=== PATIENT | female | born 1950 | race Caucasian/White ===

== ENCOUNTER 2019-11-23 16:01 | Emergency (ER) | payer MEDICARE, MEDICAID ==
[~2019-11-23] VITALS: Ht 154.9 cm; Wt 91.5 kg
[2019-11-23 16:01] VITALS: BP 120/76
[~2019-11-23 16:01] MED LIST: ACET325T9 PO; ATOR10TA60 PO; BENZ0.5T32 PO; BENZ2AMP4 PO; CYAN10002 IJ; DIVA500T17 PO; FAMO-63 PO; FURO-69 PO; GABA-585 PO; LEVO50TA5 PO; MAG355OR12 PO; MAGN24003 PO; MELO7.5T5 PO; METH29OI TP; METO25TA2 PO; METO50TA4 PO; NICO2GUM42 BC; OLAN20TA5 PO; OMEP20TA8 PO; OXCA600T3 PO; QUET25TA5 PO; QUET50TA5 PO; SUVO15TA PO; TRAZ-120 PO
--- NOTE | 2019-11-23 16:40 | PHYS DOC ---
Past History Past Medical History: Asthma, Bipolar, Depression, UTI Past Surgical History: No Surgical History Alcohol Use: None General Adult EDM: Chief Complaint: OTHER COMPLAINTS HPI: HPI: 69-year-old female presents with altered mental status. The patient has been having some low back pain and started a new muscle relaxer a week ago. Since that time, she states that she has felt a little "loopy". Her daughter also told my nurse that she has seemed a little more altered each day this week. She looked at her mother's pill organizer and it seemed to be in disarray today. The patient's daughter is concerned about this. The patient knows that she has felt a little bit different, but denies being "confused". She denies fever chills. She denies dysuria or increased urinary frequency. She has no other complaints at this time. Review of Systems: Review of Systems: Constitutional: Denies fever or chills Eyes: Denies change in visual acuity HENT: Denies nasal congestion or sore throat Respiratory: Denies cough or shortness of breath Cardiovascular: Denies chest pain or edema GI: Denies abdominal pain, nausea, vomiting, bloody stools or diarrhea : Denies dysuria Musculoskeletal: Low back pain. Denies joint pain Integument: Denies rash Neurologic: AMS. Denies headache, focal weakness or sensory changes Endocrine: Denies polyuria or polydipsia Lymphatic: Denies swollen glands Psychiatric: Denies depression or anxiety Heart Score: Risk Factors: Risk Factors: DM, Current or recent (<one month) smoker, HTN, HLP, family history of CAD, obesity. Risk Scores: Score 0 - 3: 2.5% MACE over next 6 weeks - Discharge Home Score 4 - 6: 20.3% MACE over next 6 weeks - Admit for Clinical Observation Score 7 - 10: 72.7% MACE over next 6 weeks - Early Invasive Strategies Current Medications: Current Meds: Current Medications Medications (Trade) Dose Ordered Sig/Sadai Start Time Stop Time Status Last Admin Dose Admin Sodium Chloride 1,000 ml @ 1,000 mls/hr 1X ONCE 11/23/19 16:30 11/23/19 17:29 Allergies: Allergies: Allergies Coded Allergies Type Severity Reaction Last Updated Verified adhesive tape Allergy Intermediate 01/09/16 Yes sodium acetate Allergy Intermediate 01/09/16 Yes thiopental Allergy Intermediate 01/09/16 Yes Physical Exam: PE: Constitutional: Well developed, well nourished, no acute distress, non-toxic appearance. [] HENT: Normocephalic, atraumatic, bilateral external ears normal, oropharynx moist, no oral exudates, nose normal. [] Eyes: PERRLA, EOMI, conjunctiva normal, no discharge. [] Neck: Normal range of motion, no tenderness, supple, no stridor. [] Cardiovascular:Heart rate regular rhythm, no murmur [] Lungs & Thorax: Bilateral breath sounds clear to auscultation [] Abdomen: Bowel sounds normal, soft, no tenderness, no masses, no pulsatile masses. [] Skin: Warm, dry, no erythema, no rash. [] Back: No tenderness, no CVA tenderness. [] Extremities: No tenderness, no cyanosis, no clubbing, ROM intact, no edema. [] Neurologic: Alert and oriented X 3, normal motor function, normal sensory function, no focal deficits noted. [] Psychologic: Slightly slow to answer some questions. Affect normal, judgement normal, mood normal. [] Current Patient Data: Vital Signs: Vital Signs Date Time Temp Pulse Resp B/P (MAP) Pulse Ox O2 Delivery O2 Flow Rate FiO2 11/23/19 16:01 98.2 103 20 120/76 (91) 96 Room Air EKG: EKG: [] Radiology/Procedures: Radiology/Procedures: [] Course & Med Decision Making: Course & Med Decision Making Pertinent Labs and Imaging studies reviewed. (See chart for details) The patient's labs are unremarkable. Her urinalysis is negative for infection. I believe that her altered mental status could be from her cyclobenzaprine prescription. I advised that she stop taking this. I will discharge her with a short course of tramadol for exacerbations of her pain. She is stable for discharge at this time. [] Suon Disclaimer: Nehal Disclaimer: This electronic medical record was generated, in whole or in part, using a voice recognition dictation system. Departure Departure: Impression: Primary Impression: Adverse reaction to drug Qualified Codes: T50.905A - Adverse effect of unspecified drugs, medicaments and biological substances, initial encounter Additional Impression: Altered mental status Qualified Codes: R41.0 - Disorientation, unspecified Disposition: HOME, SELF-CARE Condition: STABLE Referrals: EVELIA RUSSELL MD (PCP) Patient Instructions: Delirium Additional Instructions: You should stop taking your muscle relaxer as I believe this may be causing your symptoms. I have given you a prescription for pain medication to be used only when the pain is significant. You should try Tylenol and ibuprofen first. Scripts Tramadol Hcl (TRAMADOL HCL) 50 Mg Tablet 50 MG PO PRN Q6HRS PRN for PAIN, #14 TAB Prov: DEYSI AWAD DO 11/23/19 DEYSI AWAD DO Nov 23, 2019 16:40
[2019-11-23] MEDS: IV NORMAL SALINE 1,000ML 1,000 ML IV ONE (16:48)
[2019-11-23 17:12] LABS: BASO % 1 % (0-3); EOS # 0.1 x10^3/uL (0.0-0.7); EOS % 1 % (0-3); HEMATOCRIT 40.9 % (36.0-47.0); HEMOGLOBIN 13.5 g/dL (12.0-15.5); LYMPH # 1.4 x10^3/uL (1.0-4.8); LYMPH % 19 % (24-48); MEAN CORPUSCULAR HEMOGLOBIN 34 pg (25-35); MEAN CORPUSCULAR HGB CONC 33 g/dL (31-37); MEAN CORPUSCULAR VOLUME 103 fL (79-100); MONO # 0.6 x10^3/uL (0.0-1.1); MONO % 8 % (0-9); NEUT # 5.3 x10^3uL (1.8-7.7); NEUT % 71 % (31-73); PLATELET COUNT 216 x10^3/uL (140-400); RED BLOOD COUNT 3.96 x10^6/uL (3.50-5.40); RED CELL DISTRIBUTION WIDTH 14.3 % (11.5-14.5); WHITE BLOOD COUNT 7.4 x10^3/uL (4.0-11.0)
[2019-11-23 17:16] LABS: CALCIUM 9.2 mg/dL (8.5-10.1); CREATININE 0.8 mg/dL (0.6-1.0); GFR 71.5; POTASSIUM 3.9 mmol/L (3.5-5.1)
[2019-11-23 17:22] LABS: ALBUMIN 4.4 g/dL (3.4-5.0); ALBUMIN/GLOBULIN RATIO 1.8 (1.0-1.7); TOTAL BILIRUBIN 0.8 mg/dL (0.2-1.0); TOTAL PROTEIN 6.9 g/dL (6.4-8.2)
[2019-11-23 17:22] LABS: BILIRUBIN,URINE NEG (NEG); CLARITY,URINE HAZY; COLOR,URINE YELLOW; GLUCOSE,URINE NEG (NEG); NITRITE,URINE NEG (NEG); UROBILINOGEN,URINE 0.2 mg/dL (0.2 mg/dL)
[2019-11-23 17:23] LABS: BACTERIA,URINE 0 /HPF (0-FEW); RBC,URINE 0 /HPF (0-2); SQUAMOUS EPITHELIAL CELL,UR MOD /LPF
[2019-11-23] MEDS ORDERED: TRAM50TA PO (17:59)
== END 2019-11-23 18:00 | disposition home or self-care (01) ==
LOC: ER 16:01
DX: R41.0 Disorientation, unspecified (principal); T48.205A Adverse effect of unspecified drugs acting on muscles, initial encounter; M54.5 Low back pain; J45.909 Unspecified asthma, uncomplicated; F31.9 Bipolar disorder, unspecified; Z87.440 Personal history of urinary (tract) infections; Z88.8 Allergy status to other drugs, medicaments and biological substances; Y92.89 Other specified places as the place of occurrence of the external cause
CPT/HCPCS: 36415; 80053; 81001; 85025; 87086; 96360; 99284-25; J7030

== ENCOUNTER → 2020-10-24 | Outpatient (CLI) | payer MEDICAID, OTHER ==
[~2020-10-24] MED LIST changes: +TRAM50TA PO
--- NOTE | 2020-10-24 16:09 | RAD ---
EXAM: DUAL ENERGY X-RAY ABSORPTIOMETRY (DEXA). HISTORY: Postmenopausal screening. FINDINGS: The lowest measured T-score is -1.3 in the right hip, based on a bone mineral density of is 0.799 g/cm^2. Refer to the worksheets for full detail. No comparison examinations are available. IMPRESSION: 1. Low bone mass. Bone mineral density yields a T-score between -1.0 and -2.5. Fracture risk is incre ased. 2. FRAX report: Not available. METHODOLOGY: Dual energy x-ray absorptiometry was performed to measure bone mineral density. The foll owing analysis is based on the 2019 Official Positions of the International Society for Clinical Dens itometry: Measurements of the hips and the average of L1-L4 are preferred. When the spine and/or hip cannot be feasibly measured or interpreted, or in the setting of hyperparathyroidism, distal radial bone minera l density may be measured. The lumbar spine T-score is based on the average bone mineral density of L1-L4. In the setting of art ifact or anatomic abnormality, some lumbar levels may be excluded, and the remaining levels used for calculation. A single lumbar level is not used for diagnosis, and if only a single level is available for assessment, another anatomic site will be used to assign a diagnosis. The hip T-score is based on the bone mineral density measurement of the femoral neck or total proxima l femur of either side, whichever is lowest. Bilateral mean values are not used for diagnosis. The forearm T-score is derived from 33% of the distal radius of the nondominant forearm. Electronically signed by: Patricia Felder MD (10/24/2020 4:06 PM) [id number]
--- NOTE | 2020-10-25 16:27 | RAD ---
EXAM: Bilateral screening mammogram. HISTORY: 70-year-old female presents for screening mammography. TECHNIQUE: Full-field digital craniocaudal and mediolateral oblique views of both breasts are obtaine d for evaluation. Computer aided detection was applied. COMPARISON: 10/08/2018, 10/06/2018, 07/29/2017 BREAST PARENCHYMAL DENSITY: Level C - Heterogeneously dense. FINDINGS: There is a small nodular asymmetry within the posterior medial aspect of the right breast i n the craniocaudal projection which demonstrates no clear correlate on prior studies. This may corres pond with a stable nodular asymmetry overlying the pectoralis muscle in the mediolateral oblique proj ection compared to prior studies. There are benign calcifications within both breasts. There is no ar chitectural distortion. IMPRESSION: BI-RADS Category 0: Incomplete. Additional imaging needed. RECOMMENDATION: Further evaluation with a full field true lateral view and spot compression craniocau daija view the right breast to assess nodular asymmetry within the posterior medial breast is recommend ed. Sonographic imaging can also be performed if deemed indicated based on its mammographic findings. If your mammogram demonstrates that you have dense breast tissue, which could hide abnormalities, and if you have other risk factors for breast cancer that have been identified, you might benefit from s upplemental screening tests that may be suggested by your ordering physician. Dense breast tissue, i n and of itself, is a relatively common condition. This information is not provided to cause undue c oncern, but rather to raise your awareness and to promote discussion with your physician regarding th e presence of other risk factors, in addition to dense breast tissue. A report of your mammography re sults will be sent to you and your physician. You should contact your physician if you have any ques tions or concerns regarding this report. Mammography is a sensitive method for finding small breast cancers, but it does not detect them all a nd is not a substitute for careful clinical examination. A negative mammogram does not negate a clin ically suspicious finding and should not result in delay in biopsying a clinically suspicious abnorma lity. PQRS compliance statement - Patient information was entered into a reminder system with a target due date for the next mammogram. "Our facility is accredited by the [employer] Mammography Program." Electronically signed by: Patricia Felder MD (10/25/2020 4:24 PM) [id number]
== END ==
LOC: MAMMO 14:38
PROVIDERS: ATTEND Family Medicine
DX: Z12.31 Encounter for screening mammogram for malignant neoplasm of breast (principal); Z13.820 Encounter for screening for osteoporosis; N64.89 Other specified disorders of breast; M85.89 Other specified disorders of bone density and structure, multiple sites
CPT/HCPCS: 77067; 77080

== ENCOUNTER → 2020-11-10 | Outpatient (CLI) | payer OTHER ==
--- NOTE | 2020-11-10 19:04 | RAD ---
Examination: 1. Right digital diagnostic mammogram. 2. Limited right breast ultrasound. INDICATION: 70-year-old woman recalled from screening for posterior upper inner right breast mass. COMPARISON: Bilateral screening mammogram 10/24/2020 TECHNIQUE AND FINDINGS: An ML view of the right breast was obtained in addition to spot compression right cc view. Targeted u ltrasound of the posterior upper inner quadrant right breast was also performed. The mammographic findings show scattered fibroglandular densities with persistence of the mass in the posterior upper inner right breast. Targeted ultrasound of this quadrant identified at the 2:30 o'clock position 10 cm from the nipple a subtle, hypoechoic 4 mm mass with posterior acoustic shadowing, antiparallel orientation, and an echo genic halo that is suspicious for primary breast malignancy. Sonographic survey of the right axilla r evealed no adenopathy. IMPRESSION: Suspicious 4 mm mass in the posterior upper inner right breast. Recommend ultrasound-guided right breast core needle biopsy. BI-RADS Category 4 Findings suspicious for malignancy. Findings and recommendations telephoned to the referring provider's office where Chayo took the telepho ne report on Jacinda Beyer NP's behalf at 1:24 PM on 11/10/2020. Electronically signed by: Reyes Velazquez MD (11/10/2020 7:02 PM) [id number]
== END ==
LOC: MAMMO 12:23
PROVIDERS: ATTEND Physician Assistant Medical
DX: N63.12 Unspecified lump in the right breast, upper inner quadrant (principal)
CPT/HCPCS: 76641; 77065

== ENCOUNTER 2021-01-08 06:42 | Emergency (ER) | payer OTHER ==
[~2021-01-08] VITALS: Ht 154.9 cm; Wt 91.5 kg
[2021-01-08 06:53] VITALS: BP 153/68
--- NOTE | 2021-01-08 07:16 | PHYS DOC ---
Past History Past Medical History: Asthma, Bipolar, Depression, DVT, UTI, Other Additional Past Medical Histor: PTSD Past Surgical History: Knee Replacement, Other Additional Past Surgical Histo: lumptectomy, lt wrist, lt ankle Alcohol Use: Occasionally General Adult EDM: Chief Complaint: MECHANICAL FALL HPI: HPI: 70-year-old female presents with left hip pain. The patient got tangled up in her dog's leash 2 days ago and fell onto her left side. She is able to walk with a cane. She still has a moderate amount of pain so she thought she should get it checked out. She has been taking pain medication for recent breast surgery and was surprised her hip still hurts despite this medication. She denies numbness, tingling, or altered sensation. She has no other complaints at this time. Review of Systems: Review of Systems: Constitutional: Denies fever or chills Eyes: Denies change in visual acuity HENT: Denies nasal congestion or sore throat Respiratory: Denies cough or shortness of breath Cardiovascular: Denies chest pain or edema GI: Denies abdominal pain, nausea, vomiting, bloody stools or diarrhea : Denies dysuria Musculoskeletal: Left hip pain Integument: Denies rash Neurologic: Denies headache, focal weakness or sensory changes Endocrine: Denies polyuria or polydipsia Lymphatic: Denies swollen glands Psychiatric: Denies depression or anxiety Allergies: Allergies: Allergies Coded Allergies Type Severity Reaction Last Updated Verified adhesive tape Allergy Intermediate 01/08/21 Yes sodium acetate Allergy Intermediate 01/08/21 Yes thiopental Allergy Intermediate 01/08/21 Yes Physical Exam: PE: Constitutional: Well developed, well nourished, no acute distress, non-toxic appearance. [] HENT: Normocephalic, atraumatic, bilateral external ears normal, oropharynx moist, no oral exudates, nose normal. [] Eyes: PERRLA, EOMI, conjunctiva normal, no discharge. [] Neck: Normal range of motion, no tenderness, supple, no stridor. [] Cardiovascular: Heart rate regular rhythm, no murmur [] Lungs & Thorax: Bilateral breath sounds clear to auscultation [] Abdomen: Bowel sounds normal, soft, no tenderness, no masses, no pulsatile masses. [] Skin: Warm, dry, no erythema, no rash. [] Back: No tenderness, no CVA tenderness. [] Extremities: Tenderness of the greater trochanter left hip. No obvious ecchymosis or deformity. [] Neurologic: Alert and oriented X 3, normal motor function, normal sensory function, no focal deficits noted. [] Psychologic: Affect normal, judgement normal, mood normal. [] Current Patient Data: Vital Signs: Vital Signs Date Time Temp Pulse Resp B/P (MAP) Pulse Ox O2 Delivery O2 Flow Rate FiO2 01/08/21 06:53 97.6 87 16 153/68 (96) 96 EKG: EKG: [] Radiology/Procedures: Radiology/Procedures: [] Impressions: XR BILATERAL HIP (WITH OR WITHOUT PELVIS) LEFT 2 VIEWS DATE: 01/08/2021 7:17 AM INDICATION: FELL ONTO LEFT HIP, PAIN / Spl. Instructions: / History: COMPARISON: None. FINDINGS: Bones: There is no evidence of acute fracture or dislocation. Joints: The joint spaces are normal. Miscellaneous: None. IMPRESSION: No evidence of acute fracture. Electronically signed by: Naman Triana MD (01/08/2021 7:41 AM) [id number] DICTATED AND SIGNED BY: NAMAN TRIANA MD DATE: 01/08/21 0739 CC: DEYSI AWAD DO; MARIBELL CARRANZA PA ~MTH0 0 Heart Score: C/O Chest Pain: N/A Risk Factors: Risk Factors: DM, Current or recent (<one month) smoker, HTN, HLP, family history of CAD, obesity. Risk Scores: Score 0 - 3: 2.5% MACE over next 6 weeks - Discharge Home Score 4 - 6: 20.3% MACE over next 6 weeks - Admit for Clinical Observation Score 7 - 10: 72.7% MACE over next 6 weeks - Early Invasive Strategies Course & Med Decision Making: Course & Med Decision Making Pertinent Labs and Imaging studies reviewed. (See chart for details) The patient's x-ray is negative for fracture. I believe she does have a contusion. I have advised supportive care such as ice, NSAIDs elevation, and rest. She is stable for discharge at this time. [] Dragon Disclaimer: Dragon Disclaimer: This electronic medical record was generated, in whole or in part, using a voice recognition dictation system. Departure Departure: Impression: Primary Impression: Contusion of left hip, initial encounter Referrals: MARIBELL CARRANZA (PCP) Patient Instructions: Contusion, [id number] DEYSI AWAD DO January 08, 2021 07:16
--- NOTE | 2021-01-08 07:44 | RAD ---
XR BILATERAL HIP (WITH OR WITHOUT PELVIS) LEFT 2 VIEWS DATE: 01/08/2021 7:17 AM INDICATION: FELL ONTO LEFT HIP, PAIN / Spl. Instructions: / History: COMPARISON: None. FINDINGS: Bones: There is no evidence of acute fracture or dislocation. Joints: The joint spaces are normal. Miscellaneous: None. IMPRESSION: No evidence of acute fracture. Electronically signed by: Anderson Stephenson MD (01/08/2021 7:41 AM) [id number]
[2021-01-08] MEDS ORDERED: HYDR-2759 PO (08:07)
== END 2021-01-08 08:11 | disposition home or self-care (01) ==
LOC: ER 06:42
DX: S70.02XA Contusion of left hip, initial encounter (principal); J45.909 Unspecified asthma, uncomplicated; F31.9 Bipolar disorder, unspecified; F43.10 Post-traumatic stress disorder, unspecified; Z86.718 Personal history of other venous thrombosis and embolism; Z87.440 Personal history of urinary (tract) infections; Z88.8 Allergy status to other drugs, medicaments and biological substances; W18.39XA Other fall on same level, initial encounter; Y93.89 Activity, other specified; Y92.89 Other specified places as the place of occurrence of the external cause; Y99.8 Other external cause status
CPT/HCPCS: 73502; 99284

== ENCOUNTER → 2021-03-01 | Outpatient (CLI) | payer OTHER ==
[~2021-03-01] MED LIST changes: +HYDR-2759 PO
[2021-03-01 15:53] LABS: BASO % 1 % (0-3); EOS # 0.2 x10^3/uL (0.0-0.7); EOS % 4 % (0-3); HEMATOCRIT 40.7 % (36.0-47.0); HEMOGLOBIN 13.6 g/dL (12.0-15.5); LYMPH # 1.4 x10^3/uL (1.0-4.8); LYMPH % 27 % (24-48); MEAN CORPUSCULAR HEMOGLOBIN 35 pg (25-35); MEAN CORPUSCULAR HGB CONC 34 g/dL (31-37); MEAN CORPUSCULAR VOLUME 105 fL (79-100); MONO # 0.3 x10^3/uL (0.0-1.1); MONO % 6 % (0-9); NEUT # 3.2 x10^3uL (1.8-7.7); NEUT % 63 % (31-73); PLATELET COUNT 198 x10^3/uL (140-400); WHITE BLOOD COUNT 5.1 x10^3/uL (4.0-11.0)
[2021-03-01 16:02] LABS: ALBUMIN 3.9 g/dL (3.4-5.0); ALBUMIN/GLOBULIN RATIO 1.4 (1.0-1.7); ALK PHOS 87 U/L (46-116); ALT (SGPT) 26 U/L (14-59); ANION GAP 11 (6-14); AST (SGOT) 20 U/L (15-37); BLOOD UREA NITROGEN 19 mg/dL (7-20); BUN/CREATININE RATIO 24 (6-20); CALCIUM 8.5 mg/dL (8.5-10.1); CARBON DIOXIDE 27 mmol/L (21-32); CHLORIDE 107 mmol/L (98-107); CREATININE 0.8 mg/dL (0.6-1.0); GFR 71.3; GLUCOSE 92 mg/dL (70-99); SODIUM 145 mmol/L (136-145); TOTAL BILIRUBIN 0.6 mg/dL (0.2-1.0); TOTAL PROTEIN 6.7 g/dL (6.4-8.2)
[2021-03-01 16:07] LABS: VAL ACID 17 mcg/mL (50-100)
[2021-03-02 16:13] LABS: FREE T4 0.87 ng/dL (0.76-1.46); THYROID STIM HORMONE (TSH) 1.269 uIU/mL (0.358-3.740)
[2021-03-02 23:07] LABS: HEMOGLOBIN A1C 5.7 % (4.8-5.6)
== END ==
LOC: LAB 14:57
PROVIDERS: ATTEND Nurse Practitioner Family
DX: Z79.899 Other long term (current) drug therapy (principal)
CPT/HCPCS: 36415; 80053; 80061; 80164; 83036; 84439; 84443; 84480; 85025

== ENCOUNTER → 2021-06-22 | Outpatient (CLI) | payer OTHER ==
--- NOTE | 2021-06-22 18:04 | RAD ---
XR BILATERAL HIP (WITH OR WITHOUT PELVIS) LEFT 2 VIEWS History: Back and hip pain. Comparison: 01/08/2021 Technique: AP view pelvis. Coned-down AP and frog-leg lateral views of the left hip. Findings: Osseous mineralization is normal. No acute fracture or dislocaton. Mild degenerative changes of the b ilateral femoral acetabular joints. The pubic rami and sacroiliac joints are intact. Multiple pelvic phleboliths. Degenerative changes lower lumbar spine. Impression: 1. Mild degenerative changes without acute osseous abnormality of the left hip. Electronically signed by: Erik Deras MD (06/22/2021 6:02 PM) [id number]
--- NOTE | 2021-06-22 18:08 | RAD ---
XR LUMBAR SPINE 4+V History: Back and hip pain. Comparison: None. Technique: 5 views of the lumbar spine. Findings: There are 5 non-rib bearing lumbar vertebral segments. There is approximately 15 percent height loss at the anterior L3 vertebral body with irregularity of the superior endplate. Minimal levoconvex curvature related to asymmetric compression of the right L3 vertebral body. Lower lumbar hypertrophic facet degenerative changes. Mild to moderate disc space narrowing L4-L5. Sacroiliac joints are unremarkable. Soft tissues are unremarkable. IMPRESSION: 1. Compression fracture of the L3 vertebral body with anterior and right lateral wedging, age-indete rminate. Electronically signed by: Erik Deras MD (06/22/2021 6:06 PM) [id number]
== END ==
LOC: RAD 11:20
PROVIDERS: ATTEND Physician Assistant Medical
DX: M47.816 Spondylosis without myelopathy or radiculopathy, lumbar region (principal); M48.56XA Collapsed vertebra, not elsewhere classified, lumbar region, initial encounter for fracture; M48.061 Spinal stenosis, lumbar region without neurogenic claudication; M51.26 Other intervertebral disc displacement, lumbar region; M16.12 Unilateral primary osteoarthritis, left hip
CPT/HCPCS: 72110; 73502

== ENCOUNTER → 2021-12-25 | Outpatient (CLI) | payer MEDICARE ==
[~2021-12-25] MED LIST changes: -OMEP20TA8 PO; +OMEP20TA91 PO
[2021-12-25 10:41] LABS: BASO % 1 % (0-3); EOS % 1 % (0-3); HEMATOCRIT 41.1 % (36.0-47.0); HEMOGLOBIN 13.7 g/dL (12.0-15.5); LYMPH # 0.6 x10^3/uL (1.0-4.8); LYMPH % 26 % (24-48); MEAN CORPUSCULAR HEMOGLOBIN 35 pg (25-35); MEAN CORPUSCULAR HGB CONC 33 g/dL (31-37); MEAN CORPUSCULAR VOLUME 104 fL (79-100); MONO # 0.2 x10^3/uL (0.0-1.1); MONO % 7 % (0-9); NEUT # 1.6 x10^3uL (1.8-7.7); NEUT % 65 % (31-73); PLATELET COUNT 140 x10^3/uL (140-400); RED BLOOD COUNT 3.95 x10^6/uL (3.50-5.40); RED CELL DISTRIBUTION WIDTH 14.8 % (11.5-14.5); WHITE BLOOD COUNT 2.5 x10^3/uL (4.0-11.0)
[2021-12-25 10:57] LABS: ALBUMIN 3.4 g/dL (3.4-5.0); ALBUMIN/GLOBULIN RATIO 1.1 (1.0-1.7); ALK PHOS 63 U/L (46-116); ALT (SGPT) 16 U/L (14-59); ANION GAP 9 (6-14); AST (SGOT) 9 U/L (15-37); BLOOD UREA NITROGEN 20 mg/dL (7-20); BUN/CREATININE RATIO 29 (6-20); CARBON DIOXIDE 29 mmol/L (21-32); CHLORIDE 103 mmol/L (98-107); CREATININE 0.7 mg/dL (0.6-1.0); GLUCOSE 91 mg/dL (70-99); POTASSIUM 3.6 mmol/L (3.5-5.1); SODIUM 141 mmol/L (136-145); TOTAL BILIRUBIN 0.7 mg/dL (0.2-1.0); TOTAL PROTEIN 6.4 g/dL (6.4-8.2)
[2021-12-25 10:59] LABS: VAL ACID 83 mcg/mL (50-100)
[2021-12-25 21:55] LABS: CHOLESTEROL/HDL RATIO 3.5; FREE T4 0.75 ng/dL (0.76-1.46); THYROID STIM HORMONE (TSH) 3.05 uIU/mL (0.358-3.740)
== END ==
LOC: LAB 10:01
PROVIDERS: ATTEND Physician Assistant
DX: Z79.899 Other long term (current) drug therapy (principal)
CPT/HCPCS: 36415; 80053; 80061; 80164; 83036; 84439; 84443; 84480; 85025